=== PATIENT | male | born 1975 | race Caucasian/White ===

== ENCOUNTER → 2021-07-08 | Outpatient (CLI) | payer BC ==
--- NOTE | 2021-07-08 11:16 | RAD ---
Study: XR SHOULDER_LEFT 2+ VIEWS Indication: Left shoulder pain. Comparison: None. Findings: Subarticular lucency of the distal clavicle with adjacent sclerosis. Prominence of the AC joint capsu le. Background arthrosis is mild. Alignment is anatomic. No acute fracture. Impression: Lucency at the articular margin of the clavicle at the AC joint with subjacent sclerosis and prominen ce of the AC joint capsule. Distal clavicular osteolysis is a consideration if there is a history of overuse. The presence of sclerosis makes a septic joint less likely but correlate with patient histor y and symptoms. No significant osseous finding elsewhere at the left shoulder girdle. Electronically signed by: RALPH NAVAS MD (07/08/2021 11:14 AM) [id number]
== END ==
LOC: RAD 10:38
PROVIDERS: ATTEND Nurse Practitioner Family
DX: M19.012 Primary osteoarthritis, left shoulder (principal)
CPT/HCPCS: 73030